=== PATIENT | female | born 1940 | race Caucasian/White ===

== ENCOUNTER 2018-02-14 07:29 | Day surgery (SDC) | payer MEDICARE, BC ==
[~2018-02-14 07:29] MED LIST: Iopamidol 755 Mg/ML 100 ML Bottle IV SCH; Lidocaine 2% Viscous Solution 15 ML Cup ONE; Lidocaine 4% Top Soln 50 ML Bottle ONE; Sodium Chloride 0.9% 100 ML IV SCH
[2018-02-14] MEDS ORDERED: Dextrose 5%-Lactated Ringers 1,000 ML IV SCH (08:00)
[2018-02-14] MEDS ORDERED: Glycopyrrolate 0.2 MG/ML 2 ML SDV IVPUSH ONE (08:30)
--- NOTE | 2018-02-14 09:09 | CT ---
CT chest PE study. Comparison: 05/15/2017. Technique: Auto dosage reduction and iterative reconstruction techniques employed. Findings: No pulmonary artery embolus. Trace pleural effusion. There are vague groundglass densities throughout both lungs on this examination without focal consolidation or trace pleural effusions. No acute osseous abnormality. No enlarged mediastinal or hilar lymph nodes. Impression: 1. Vague groundglass densities with trace pleural effusions. Groundglass densities can imply active p rocess. Long differential. Findings include hypersensitivity pneumonitis, interstitial pneumonias oth er interstitial and infectious etiologies and pulmonary edema. 2. No PE.
[2018-02-14] MEDS ORDERED: Propofol 200 MG/20 ML SDV ONE (09:11)
[2018-02-14] MEDS ORDERED: fentaNYL 100 MCG/2 ML SDV ONE (09:11)
[2018-02-14] MEDS ORDERED: Lidocaine 4% Top Soln LTA 4 ML SYRINGE ONE (09:13)
[2018-02-14] MEDS ORDERED: Benzonatate 100 MG Cap PO PRN (10:06)
[2018-02-14] MEDS ORDERED: Lactated Ringers 1,000 ML ONE (10:44)
--- NOTE | 2018-02-17 13:49 | OR ---
DATE OF PROCEDURE: 02/14/2018 PREOPERATIVE DIAGNOSIS: Chronic cough. POSTOPERATIVE DIAGNOSIS: Chronic cough with minimal gross findings on bronchoscopy (mild erythema proximal bronchial tree with very minimal secretions). OPERATIVE PROCEDURE: Flexible bronchoscopy with tracheobronchial washings and bronchoalveolar lavage to basilar segments of right lower lobe ([id number]). ANESTHESIA: Topical plus IV sedation. INDICATION FOR PROCEDURE: A 77-year-old female presenting with roughly several-month history of chronic cough. Recently, she was started on some Tessalon Perles which she thinks has helped somewhat. Interestingly, she had a CAT scan of the chest in April, which was essentially normal. With her persistent symptoms, we repeated a CAT scan of the chest today. This showed more or less diffuse, fairly symmetric ground-glass opacities throughout both lungs, perhaps somewhat more extensive in the basilar segments of the lower lobe and she is noted on room air to have O2 sats in the 89% to 90% range today. This would appear to indicate progression of some pulmonary disease. Plan is to proceed with flexible bronchoscopy with biopsies and/or washings and bronchial lavage as indicated. Potential risks of procedure were reviewed with the patient and she wishes to proceed. DETAILS OF PROCEDURE: The patient was taken to the operating room, placed in a supine position, extending slightly upward to minimize aspiration risk. IV sedation was administered, after which the nasal passages were irrigated with some topical lidocaine solution and translaryngeal injection of lidocaine was placed per Anesthesia. The flexible bronchoscope was then passed through the right side of the nose, through the nasopharynx, hypopharynx, and through the cords and into the trachea. The cord motion was symmetrical. There was no significant inflammation or abnormalities noted in the hypopharynx, larynx, or nasopharynx. Within the trachea, the proximal airways appeared to be quite normal, with the trachea being essentially normal. There was some mild redness particularly on the right side in the segmental and subsegmental bronchi, but this was quite minimal, and there were no unusual or abnormal secretions present. significant narrowing or edema and otherwise examination was unremarkable. At this point, the tracheobronchial washings had been previously collected. We then did a bronchoalveolar lavage into the medial grouping of the basilar segments of the right lower lobe which is where on CT scan, there appeared to be more intense ground-glass opacification compared to the remainder of the pulmonary substance. 200 mL of saline was injected and the effluent then collected, came back fairly clear, and was sent for full cytologic and microbiologic workup. The procedure was then concluded. The patient was taken to the recovery room in satisfactory condition. The situation was discussed with Dr. Bert Marmolejo, the patient's primary physician and will try to relatively rapidly set up a Pulmonary Medicine consultation. Roberto Henry MD /[id number]
== END 2018-02-14 11:53 | disposition home or self-care (01) ==
LOC: JP.SDS 07:29
PROVIDERS: ATTEND Surgery
DX: R05 Cough (principal); I10 Essential (primary) hypertension; E11.9 Type 2 diabetes mellitus without complications; E78.5 Hyperlipidemia, unspecified; K21.9 Gastro-esophageal reflux disease without esophagitis; E66.9 Obesity, unspecified
CPT/HCPCS: 31624; 36415; 71275; 82565; 82962; 83880; 87015; 87070; 87102; 87116; 87205; 87206; 87220; 88112; 88305; A9270; J2704; J3010; J7030; J7042; J7120; Q9967; 87077; J3490

== ENCOUNTER 2022-04-05 06:31 | Emergency (ER) | payer MEDICARE, BC ==
[2022-04-05] MEDS ORDERED: Sodium Chloride 0.9% 10 ML Syringe FLUSH PRN (06:34)
[2022-04-05] MEDS ORDERED: Aspirin 81 MG Tab.Chew PO ONE (06:37)
[2022-04-05 07:16] LABS: TROPONIN I HIGH SENSITIVITY 34.1 pg/mL (<=60.3)
[2022-04-05] MEDS ORDERED: Sodium Chloride 0.9% 1,000 ML IV SCH (07:45)
[2022-04-05] MEDS ORDERED: Iopamidol 755 Mg/ML 100 ML Bottle IV SCH (08:00)
[2022-04-05] MEDS ORDERED: Sodium Chloride 0.9% 100 ML IV SCH (08:00)
== END 2022-04-05 13:00 | disposition home or self-care (01) ==
LOC: JP.ED 06:31 → EEVIPCON 06:31 → JP.ED 13:00
DX: I26.99 Other pulmonary embolism without acute cor pulmonale (principal); E11.9 Type 2 diabetes mellitus without complications; I10 Essential (primary) hypertension; E78.00 Pure hypercholesterolemia, unspecified; Z79.84 Long term (current) use of oral hypoglycemic drugs; Z20.822 Contact with and (suspected) exposure to COVID-19
CPT/HCPCS: 36415; 71045; 71275; 80048; 82947; 83880; 84484; 85025; 85379; 85610; 85730; 93005; 96360; 96361; 99285; A9270; J3490; J7030; Q9967; U0002

== ENCOUNTER 2022-09-10 14:06 | Observation (INO) | payer MEDICARE, BC ==
[2022-09-10] MEDS ORDERED: 50% Dextrose in Water 50 ML Syringe IVPUSH ONE (14:13)
[2022-09-10] MEDS ORDERED: Sodium Chloride 0.9% 10 ML Syringe FLUSH PRN ×2 (14:13→18:20)
[2022-09-10] MEDS ORDERED: Glucagon,Human Recombinant 1 MG Vial IM ONE (14:13)
[2022-09-10] MEDS ORDERED: Glucagon,Human Recombinant 1 MG Vial ONE (14:15)
[2022-09-10] MEDS ORDERED: Sodium Chloride 23.4% 154 MEQ in Dextrose 10% in Water 1,000 ML IV SCH ×2 (14:15)
[2022-09-10] MEDS ORDERED: WATER IV SCH (14:30)
[2022-09-10] MEDS ORDERED: DEXTROSE IV SCH (14:30)
[2022-09-10] MEDS ORDERED: SODIUM CHLORIDE IV SCH (14:30)
[2022-09-10] MEDS ORDERED: Potassium Chloride 20 MEQ in Premix Bag 1 BAG IV SCH (15:00)
[2022-09-10 15:53] LABS: CORONAVIRUS COVID-19 NAA NEGATIVE (NEGATIVE)
[2022-09-10] MEDS: Potassium Chloride 10 MEQ in Premix Bag 1 BAG IV SCH ×2 (16:00→17:22)
[2022-09-10] MEDS ORDERED: Potassium Chloride 20 MEQ Tab.ER PO ONE (17:43)
[2022-09-10] MEDS ORDERED: Dextrose 5%-0.9% NaCl 1,000 ML IV SCH (18:20)
[2022-09-10] MEDS ORDERED: 50% Dextrose in Water 50 ML Syringe IV PRN (18:20)
[2022-09-10] MEDS ORDERED: Albuterol 0.083% 2.5 MG/3 ML Neb Soln NEB PRN (18:20)
[2022-09-10] MEDS ORDERED: Ondansetron 4 MG/2 ML SDV IV PRN (18:20)
[2022-09-10] MEDS ORDERED: Enoxaparin 40 MG/0.4 ML Syringe SUBCUT SCH (18:20)
[2022-09-10] MEDS ORDERED: Glucose Gel 15 GM in 37.5 GM Tube PO PRN (18:20)
[2022-09-10] MEDS ORDERED: Albuterol/Ipratropium 3.0-0.5 MG/3 ML Neb Soln NEB PRN (18:20)
[2022-09-10] MEDS ORDERED: Acetaminophen 325 MG Tab PO PRN (18:20)
[2022-09-10] MEDS: Insulin Lispro 100 Unit/ML 3 ML KwikPen SUBCUT SCH ×2 (19:22→21:16)
[2022-09-11] MEDS: Insulin Lispro 100 Unit/ML 3 ML KwikPen SUBCUT SCH ×2 (07:46→11:34)
[2022-09-11] MEDS ORDERED: Enoxaparin 40 MG/0.4 ML Syringe SUBCUT SCH (18:00)
== END 2022-09-11 12:02 | disposition home or self-care (01) ==
LOC: JP.ED 14:06 → JP.MS 16:55
PROVIDERS: ADMIT Hospitalist; ATTEND Hospitalist
DX: J10.1 Influenza due to other identified influenza virus with other respiratory manifestations (principal); E16.2 Hypoglycemia, unspecified; E87.6 Hypokalemia; R53.1 Weakness; R09.02 Hypoxemia; I10 Essential (primary) hypertension; F41.9 Anxiety disorder, unspecified; E11.9 Type 2 diabetes mellitus without complications; E78.00 Pure hypercholesterolemia, unspecified; Z79.899 Other long term (current) drug therapy; Z20.822 Contact with and (suspected) exposure to COVID-19; Z88.8 Allergy status to other drugs, medicaments and biological substances; Z98.890 Other specified postprocedural states; Z90.49 Acquired absence of other specified parts of digestive tract; Z96.659 Presence of unspecified artificial knee joint
CPT/HCPCS: 0241U; 36415; 71045; 80048; 81001; 82803; 82947; 85025; 93005; 96365; 96366; 96372; 96375; 99285-25; A9270-GY; G0378; J1610; J1650; J1815; J3480

== ENCOUNTER 2023-07-25 07:41 | Emergency (ER) | payer MEDICARE, BC | END 2023-07-25 10:23 | disposition home or self-care (01) | LOC: JP.ED 07:41 | DX: M54.32 Sciatica, left side (principal); E11.649 Type 2 diabetes mellitus with hypoglycemia without coma; E78.00 Pure hypercholesterolemia, unspecified; I10 Essential (primary) hypertension; Z88.8 Allergy status to other drugs, medicaments and biological substances; Z91.013 Allergy to seafood; Z79.4 Long term (current) use of insulin; Z79.899 Other long term (current) drug therapy | CPT/HCPCS: 72148; 72148-26; 99283 ==

== ENCOUNTER 2024-06-06 00:14 | Emergency (ER) | payer MEDICARE, BC | END 2024-06-06 00:43 | disposition home or self-care (01) | LOC: JP.ED 00:14 | DX: E11.649 Type 2 diabetes mellitus with hypoglycemia without coma (principal); I10 Essential (primary) hypertension; Z79.4 Long term (current) use of insulin; Z79.899 Other long term (current) drug therapy; Z88.8 Allergy status to other drugs, medicaments and biological substances; Z91.013 Allergy to seafood | CPT/HCPCS: 82947; 99284 ==

== ENCOUNTER 2025-02-06 08:42 | Emergency (ER) | payer MEDICARE, BC ==
[2025-02-06 09:13] LABS: BASOPHILS ABSOLUTE AUTO 0.06 K/uL (0.00-0.10); BASOPHILS PERCENT AUTO 0.7 % (0.1-1.3); EOSINOPHILS ABSOLUTE AUTO 0.12 K/uL (0.00-0.40); EOSINOPHILS PERCENT AUTO 1.4 % (0.0-5.4); HEMOGLOBIN 13.1 g/dL (11.2-15.5); IMMATURE GRAN ABSOLUTE AUTO 0.02 K/uL (0.00-0.23); IMMATURE GRAN PERCENT AUTO 0.2 % (0.0-0.7); LYMPHOCYTES PERCENT AUTO 26.4 % (11.4-47.7); MEAN CORPUSCULAR HEMOGLOBIN 30.7 pg (31.6-35.5); MEAN CORPUSCULAR HGB CONC 33.6 g/dL (31.6-35.5); MEAN CORPUSCULAR VOLUME 91.3 fL (81.4-99.0); MONOCYTES ABSOLUTE AUTO 0.51 K/uL (0.20-0.90); MONOCYTES PERCENT AUTO 6.1 % (3.3-12.6); NEUTROPHILS ABSOLUTE AUTO 5.42 K/uL (1.0-7.6); NEUTROPHILS PERCENT AUTO 65.2 % (40.0-78.1); PLATELET COUNT,PLT 208 K/uL (130-375); RED BLOOD CELL COUNT 4.27 M/uL (3.77-5.24); WHITE BLOOD CELL COUNT,WBC 8.3 K/uL (3.2-11.0)
[2025-02-06] MEDS: Sodium Chloride 0.9% 1,000 ML IV SCH (09:30)
[2025-02-06 09:34] LABS: A/G RATIO 1.1 (1.2-2.2); ALANINE AMINOTRANSFERASE,ALT 13 U/L (12-78); ALBUMIN 3.5 g/dL (3.4-5.0); ALKALINE PHOSPHATASE 64 U/L (46-116); ASPARTATE AMNIOTRANSFERASE,AST 13 U/L (15-37); BILIRUBIN TOTAL 0.6 mg/dL (0.2-1.0); BLOOD UREA NITROGEN,BUN 29 mg/dL (7-18); CALCIUM 9.8 mg/dL (8.5-10.1); CARBON DIOXIDE,CO2 27 mmol/L (21-32); CHLORIDE,CL 102 mmol/L (100-108); CREATININE 1.3 mg/dL (0.6-1.0); EST CRCL DRUG DOSING (CG) 27.12 mL/min; ESTIMATED GFR 41 mL/min (>60); GLUCOSE RANDOM 160 mg/dL (74-106); POTASSIUM,K 4.3 mmol/L (3.6-5.2); PROTEIN TOTAL,TP 6.6 g/dL (6.4-8.2); SODIUM,NA 139 mmol/L (140-148)
[2025-02-06 09:35] LABS: ANION GAP 14.3 mmol/L (5.0-14.0)
[2025-02-06 10:23] LABS: APPEARANCE,URINE CLOUDY (CLEAR); BILIRUBIN,URINE NEGATIVE (NEGATIVE); COLOR,URINE YELLOW (YELLOW); GLUCOSE,URINE NEGATIVE (NEGATIVE); KETONES,URINE NEGATIVE (NEGATIVE); LEUKOCYTE ESTERASE,URINE TRACE (NEGATIVE); NITRITE,URINE NEGATIVE (NEGATIVE); OCCULT BLOOD,URINE NEGATIVE (NEGATIVE); PROTEIN,URINE 30 mg/dL (NEGATIVE); UROBILINOGEN,URINE 0.2 EU/dL (0.2-1.0)
[2025-02-06 10:29] LABS: AMPHETAMINES SCREEN, URINE NEGATIVE (NEGATIVE); BARBITURATE SCREEN,URINE NEGATIVE (NEGATIVE); BENZODIAZEPINES SCREEN,URINE NEGATIVE (NEGATIVE); METHADONE SCREEN, URINE PRESUMPTIVE POSITIVE (NEGATIVE); METHAMPHETAMINES SCREEN, URINE NEGATIVE (NEGATIVE); OXYCODONE SCREEN,URINE PRESUMPTIVE POSITIVE (NEGATIVE); PROPOXYPHENE SCREEN,URINE NEGATIVE (NEGATIVE); THC SCREEN,URINE 50 NG/ML NEGATIVE (NEGATIVE)
[2025-02-06 10:31] LABS: AMORPHOUS SEDIMENT,URINE NOT SEEN; BACTERIA,URINE MANY; EPITHELIAL CELLS,URINE NOT SEEN; MUCUS,URINE NOT SEEN; RBC,URINE 0-5 (0-5)
[2025-02-06] MEDS ORDERED: cefTRIAXone 1 GM Vial IM ONE (10:52)
[2025-02-06] MEDS ORDERED: cefTRIAXone 1 GM, Lidocaine 1% 2.1 ML IM ONE (11:00)
[2025-02-06] MEDS: cefTRIAXone 1 GM in Sodium Chloride 0.9% 50 ML IV ONE (11:52)
== END 2025-02-06 13:00 | disposition home or self-care (01) ==
LOC: JP.ED 08:42
DX: R41.82 Altered mental status, unspecified (principal); N39.0 Urinary tract infection, site not specified; I10 Essential (primary) hypertension; E78.00 Pure hypercholesterolemia, unspecified; E11.9 Type 2 diabetes mellitus without complications; Z90.49 Acquired absence of other specified parts of digestive tract; Z79.899 Other long term (current) drug therapy; Z79.4 Long term (current) use of insulin; Z91.013 Allergy to seafood; Z88.8 Allergy status to other drugs, medicaments and biological substances; Z91.048 Other nonmedicinal substance allergy status
CPT/HCPCS: 36415; 70450; 71045; 80053; 80305; 80307; 81001; 85025; 96361; 96365; 99285; J0696; J7030; 99283

== ENCOUNTER 2025-05-18 13:51 | Emergency (ER) | payer MEDICARE, BC ==
[2025-05-18 17:52] LABS: PLATELET COUNT,PLT 158 K/uL (130-375); RED BLOOD CELL COUNT 4.25 M/uL (3.77-5.24); WHITE BLOOD CELL COUNT,WBC 7.2 K/uL (3.2-11.0)
[2025-05-18] MEDS: diphenhydrAMINE 50 MG/ML SDV IVPUSH ONE (17:59)
[2025-05-18] MEDS: Ondansetron 4 MG/2 ML SDV IVPUSH ONE (17:59)
[2025-05-18] MEDS: Lactated Ringers 1,000 ML IV ONE (17:59)
[2025-05-18 18:10] LABS: BLOOD UREA NITROGEN,BUN 36.0 mg/dL (7-18); CARBON DIOXIDE,CO2 26.0 mmol/L (21-32); CHLORIDE,CL 95.0 mmol/L (100-108); CREATININE 1.1 mg/dL (0.6-1.0); EST CRCL DRUG DOSING (CG) 32.06 mL/min; ESTIMATED GFR 50.0 mL/min (>60); GLUCOSE RANDOM 178.0 mg/dL (74-106); POTASSIUM,K 5.2 mmol/L (3.6-5.2); SODIUM,NA 130.0 mmol/L (140-148)
[2025-05-18 18:11] LABS: ATYPICAL LYMPHOCYTES FEW; BAND ABSOLUTE MAN 0.58 K/uL; BAND PERCENT MAN 8 % (5-11); EOSINOPHILS ABSOLUTE MAN 0.14 K/uL (0.00-0.40); EOSINOPHILS PERCENT MAN 2 % (2-4); LYMPHOCYTES ABSOLUTE MAN 1.37 K/uL (0.8-3.3); LYMPHOCYTES PERCENT MAN 19 % (24-44); METAMYELOCYTE ABSOLUTE MAN 0.22 K/uL; METAMYELOCYTE PERCENT MAN 3 %; MONOCYTES ABSOLUTE MAN 0.58 K/uL (0.20-0.90); MONOCYTES PERCENT MAN 8 % (2-6); MYELOCYTE ABSOLUTE MAN 0.07; MYELOCYTE PERCENT MAN 1 %; NEUTROPHILS ABSOLUTE MAN 4.25 K/uL (1.0-7.6); SEG NEUTROPHILS PERCENT MAN 59 % (36-66)
== END 2025-05-18 19:56 | disposition home or self-care (01) ==
LOC: JP.ED 13:51
DX: K52.9 Noninfective gastroenteritis and colitis, unspecified (principal); E78.00 Pure hypercholesterolemia, unspecified; I10 Essential (primary) hypertension; E11.9 Type 2 diabetes mellitus without complications; Z95.0 Presence of cardiac pacemaker; Z91.048 Other nonmedicinal substance allergy status; Z91.013 Allergy to seafood; Z91.018 Allergy to other foods; Z79.4 Long term (current) use of insulin; Z79.899 Other long term (current) drug therapy; Z90.49 Acquired absence of other specified parts of digestive tract
CPT/HCPCS: 36415; 80048; 83605; 85025; 96361; 96374; 96375; 99283; J1200; J1790; J2405; J7120

== ENCOUNTER 2025-05-30 08:25 | Day surgery (SDC) | payer MEDICARE, BC ==
[2025-05-30] MEDS: Lactated Ringers 1,000 ML IV SCH (09:30)
[2025-05-30] MEDS ORDERED: Propofol 200 MG/20 ML SDV ONE (10:06)
== END 2025-05-30 12:04 | disposition home or self-care (01) ==
LOC: JP.SDS 08:25
PROVIDERS: ATTEND Internal Medicine
DX: K29.71 Gastritis, unspecified, with bleeding (principal); K44.9 Diaphragmatic hernia without obstruction or gangrene; I10 Essential (primary) hypertension; E11.9 Type 2 diabetes mellitus without complications; Z88.8 Allergy status to other drugs, medicaments and biological substances; Z79.4 Long term (current) use of insulin; Z79.899 Other long term (current) drug therapy
CPT/HCPCS: 43235; J2704; J7120